=== PATIENT | female | born 2000 | race Caucasian/White ===

== ENCOUNTER 2020-03-02 13:00 | Emergency (ER) | payer OTHER, SELFPAY ==
--- NOTE | 2020-03-02 13:31 | ER ---
Nurse's Notes [facility] Name: Shari Saleh Age: 19 yrs Sex: Female : 2000 Arrival Date: 03/02/2020 Time: 13:05 Bed 25 Private MD: Diagnosis: Strain of muscle, fascia and tendon at neck level Presentation: 03/02 13:10 Chief complaint: Patient states: Left sided neck pain for 10 days. Pain radiates into ll1 left arm at times with certain movements. Had JACOBSON one day. No N/V/D. No fever. Coronavirus screen: Client denies travel out of the [place] in the last 14 days. At this time, the client does not indicate any symptoms associated with coronavirus-19. Ebola Screen: Patient denies travel to an Ebola-affected area in the 21 days before illness onset. Acute neurological deficit: none identified. Initial Sepsis Screen: Does the patient meet any 2 criteria? No. Patient's initial sepsis screen is negative. Does the patient have a suspected source of infection? Yes: Other: neck pain. Risk Assessment: Do you want to hurt yourself or someone else? Patient reports no desire to harm self or others. Onset of symptoms was February 21, 2020. 13:10 Method Of Arrival: Ambulatory ll1 13:10 Acuity: KATIUSKA 4 ll1 Historical: - Allergies: 13:12 No Known Allergies; ll1 - PSHx: 13:12 None; ll1 - Immunization history:: Flu vaccine is not up to date. - Social history:: Smoking status: Patient denies any tobacco usage or history of. Screenin:16 Abuse screen: Denies threats or abuse. Denies injuries from another. Nutritional ss screening: No deficits noted. Tuberculosis screening: Never had TB. Fall Risk None identified. Assessment: 13:16 General: Appears in no apparent distress. comfortable, Behavior is calm, cooperative. ss Pain: Complains of pain in left mid cervical area, left trapezius and back Pain currently is 7 out of 10 on a pain scale. Quality of pain is described as tender, pinching, Pain began 1.5 weeks ago Is continuous. Pain: Aggravated by ROM. Neuro: Level of Consciousness is awake, alert, obeys commands, Oriented to person, place, time, situation. Cardiovascular: Capillary refill < 3 seconds is brisk in bilateral fingers. Respiratory: Airway is patent Respiratory effort is even, unlabored, Respiratory pattern is regular, symmetrical, Denies cough, shortness of breath pain with respiration, pain with cough. GI: Patient currently denies abdominal pain, diarrhea, nausea, vomiting. Derm: Skin is pink, warm \T\ dry. 13:20 Reassessment: call light given to patient. ss Vital Signs: 13:10 BP 120 / 81; Pulse 77; Resp 16; Temp 98.4; Pulse Ox 99% ; Weight 53.07 kg; Pain 8/10; ll1 ED Course: 13:05 Patient arrived in ED. mr 13:12 Triage completed. ll1 13:12 Arm band placed on Patient placed in an exam room, on a stretcher. ll1 13:15 Sole Hurt, RUY is Primary Nurse. ss 13:16 Patient has correct armband on for positive identification. Bed in low position. Call ss light in reach. 13:19 Steve Mark PA is PHCP. cp 13:19 Steve Louis MD is Attending Physician. cp 14:10 No provider procedures requiring assistance completed. Patient did not have IV access ss during this emergency room visit. Administered Medications: No medications were administered Outcome: 13:30 Discharge ordered by MD. cp 14:10 Discharged to home ambulatory, with family. ss 14:10 Condition: good 14:10 Discharge instructions given to patient, family, Instructed on discharge instructions, follow up and referral plans. medication usage, Demonstrated understanding of instructions, follow-up care, medications, Prescriptions given X 3. 14:10 Patient left the ED. ss Signatures: Lanette Oliva mr Sole Hurt, RN RN Steve Mark PA PA cp Lewis, Lynsay, RN RN ll1
--- NOTE | 2020-03-02 13:31 | EDPHYS ---
Physician Documentation [facility] Name: Shari Saleh Age: 19 yrs Sex: Female : 2000 Arrival Date: 03/02/2020 Time: 13:05 Bed 25 Private MD: ED Physician Steve Louis HPI: 03/02 13:24 This 19 yrs old Female presents to ER via Ambulatory with complaints of Neck cp Problem, Arm Pain. 13:24 The patient or guardian complains of pain, that is acute, tenderness. The symptoms are cp located on the left lateral neck. Onset: The symptoms/episode began/occurred 1.5 week(s) ago. Context: The neck injury/problem resulted from from unknown cause. Associated signs and symptoms: Pertinent positives: intermittent radiating pain down left arm, Pertinent negatives: fever, headache, numbness, tingling, weakness. Severity of symptoms: in the emergency department the symptoms are unchanged, despite home interventions. Historical: - Allergies: 13:12 No Known Allergies; ll1 - PSHx: 13:12 None; ll1 - Immunization history:: Flu vaccine is not up to date. - Social history:: Smoking status: Patient denies any tobacco usage or history of. ROS: 13:25 Eyes: Negative for injury, pain, redness, and discharge. cp 13:25 Constitutional: Negative for body aches, chills, fever, poor PO intake. 13:25 Neck: Positive for pain with movement, pain at rest, stiffness, of the left lateral neck, Negative for injury or acute deformity. 13:25 Cardiovascular: Negative for chest pain. 13:25 Respiratory: Negative for cough, shortness of breath, wheezing. 13:25 Abdomen/GI: Negative for abdominal pain, nausea, vomiting, and diarrhea. 13:25 Skin: Negative for rash. 13:25 Neuro: Negative for dizziness, headache, numbness, tingling, weakness. 13:25 All other systems are negative. Exam: 13:27 Head/Face: Normocephalic, atraumatic. cp 13:27 Constitutional: The patient appears in no acute distress, alert, awake, comfortable, non-toxic, well developed, well nourished. 13:27 Eyes: Periorbital structures: appear normal, Conjunctiva: normal, no exudate, no injection, Sclera: no appreciated abnormality, Lids and lashes: appear normal, bilaterally. 13:27 ENT: External ear(s): are unremarkable, Nose: is normal, Posterior pharynx: Airway: no evidence of obstruction, patent. 13:27 Neck: External neck: tenderness, that is mild, left lateral neck, C-spine: vertebral tenderness, is not appreciated, crepitus, is not appreciated, ROM/movement: pain, that is moderate, with rotation to the left, limited range of motion, is not appreciated, nuchal rigidity, is not appreciated. 13:27 Chest/axilla: Inspection: normal, Palpation: is normal, no crepitus, no tenderness. 13:27 Cardiovascular: Rate: normal. 13:27 Respiratory: the patient does not display signs of respiratory distress, Respirations: normal, no use of accessory muscles, labored breathing, is not present. 13:27 Skin: no rash present. 13:27 Neuro: Orientation: to person, place \T\ time. Mentation: is normal, Motor: moves all fours, strength is normal, Sensation: is normal. Vital Signs: 13:10 BP 120 / 81; Pulse 77; Resp 16; Temp 98.4; Pulse Ox 99% ; Weight 53.07 kg; Pain 8/10; ll1 MDM: 13:19 Patient medically screened. cp 13:29 Data reviewed: vital signs, nurses notes, and as a result, I will discharge patient. cp Administered Medications: No medications were administered Disposition: 16:43 Co-signature as Attending Physician, Steve Louis MD. rn Disposition: 03/02/20 13:30 Discharged to Home. Impression: Strain of muscle, fascia and tendon at neck level. - Condition is Stable. - Discharge Instructions: Muscle Strain, Neck Exercises. - Prescriptions for Lidoderm 5 % Topical adhesive patch,medicated - apply 1 patch by TRANSDERMAL route once daily; 1 box. Ibuprofen 600 mg Oral Tablet - take 1 tablet by ORAL route every 6 hours As needed take with food; 30 tablet. Cyclobenzaprine 10 mg Oral Tablet - take 1 tablet by ORAL route every 8 hours As needed; 15 tablet. - Work release form, Family Work Release, Medication Reconciliation Form, Thank You Letter, Antibiotic Education, Prescription Opioid Use form. - Follow up: Private Physician; When: 2 - 3 days; Reason: Recheck today's complaints. - Problem is new. - Symptoms are unchanged. Signatures: Steve Louis MD MD rn Smirch, Shelby, RN RN ss Page, Corey, PA PA cp Lewis, Lynsay, RN RN ll1 Corrections: (The following items were deleted from the chart) 14:10 13:30 03/02/2020 13:30 Discharged to Home. Impression: Strain of muscle, fascia and ss tendon at neck level. Condition is Stable. Forms are Medication Reconciliation Form, Thank You Letter, Antibiotic Education, Prescription Opioid Use. Follow up: Private Physician; When: 2 - 3 days; Reason: Recheck today's complaints. Problem is new. Symptoms are unchanged. cp
[2020-03-02 14:26] VITALS: BP 120/81; TEMP 98.4; O2SAT 99
== END 2020-03-02 14:10 | disposition home or self-care (01) ==
LOC: ER 13:00
DX: S16.1XXA Strain of muscle, fascia and tendon at neck level, initial encounter (principal)
CPT/HCPCS: 99282

== ENCOUNTER 2021-03-11 02:41 | Emergency (ER) | payer SELFPAY ==
[2021-03-11 03:30] LABS: Urine Blood Trace-lysed (Negative); Urine Glucose Negative (Negative); Urine Protein Negative (Negative)
[2021-03-11 03:46] LABS: Urine Bacteria 20-50 /HPF (<20); Urine Mucus 1+ /HPF (NONE SEEN); Urine RBC <5 /HPF (NONE SEEN)
--- NOTE | 2021-03-11 04:17 | EDPHYS ---
Physician Documentation [facility] Name: Shari Saleh Age: 20 yrs Sex: Female : 2000 Arrival Date: 03/11/2021 Time: 02:45 Bed 4 Private MD: ED Physician Steve Louis HPI: 03/11 03:44 This 20 yrs old Female presents to ER via Ambulatory with complaints of rn Shivering. 03:44 Patient reports shivering and cannot stop shaking. Reports had brisket earlier and got rn home later and threw up a single time. [place] better after throwing up but cannot stop shaking. Also got in an argument with girlfriend tonight and not sure if more related to that. Denies any fever. Denies any abdominal pain/cough/shortness of breath. Denies any urinary symptoms.. Onset: The symptoms/episode began/occurred just prior to arrival. Severity of symptoms: At their worst the symptoms were moderate in the emergency department the symptoms have improved. The patient has not experienced similar symptoms in the past. The patient has not recently seen a physician. Historical: - Allergies: 02:56 No Known Allergies; sj1 - Home Meds: 02:56 None [Active]; sj1 - PMHx: 02:56 None; sj1 - Immunization history:: Adult Immunizations up to date, Client reports having NOT received the Covid vaccine. - Social history:: Smoking status: Reported history of juuling and/or vaping. Patient uses alcohol, occasionally. Patient/guardian denies using street drugs. - Family history:: not pertinent. - Hospitalizations: : No recent hospitalization is reported. ROS: 03:44 Constitutional: Negative for fever, and weight loss, Eyes: Negative for injury, pain, rn redness, and discharge, ENT: Negative for injury, pain, and discharge, Neck: Negative for injury, pain, and swelling, Cardiovascular: Negative for chest pain, palpitations, and edema, Respiratory: Negative for shortness of breath, cough, wheezing, and pleuritic chest pain, Abdomen/GI: Negative for abdominal pain, nausea, vomiting, diarrhea, and constipation, Back: Negative for injury and pain, : Negative for injury, bleeding, discharge, and swelling, MS/Extremity: Negative for injury and deformity, Skin: Negative for injury, rash, and discoloration, Neuro: Negative for headache, weakness, numbness, tingling, and seizure. Exam: 03:44 Constitutional: This is a well developed, well nourished patient who is awake, alert, rn and in no acute distress. Ambulatory to room without difficulty or assistance Head/Face: Normocephalic, atraumatic. Eyes: Periorbital areas with no swelling, redness, or edema. Neck: Trachea midline, no thyromegaly or masses palpated, and no cervical lymphadenopathy. Supple, full range of motion without nuchal rigidity, or vertebral point tenderness. No Meningismus. Cardiovascular: Regular rate and rhythm. No pulse deficits. Respiratory: No increased work of breathing, no retractions or nasal flaring. Abdomen/GI: Soft, non-tender Back: No spinal tenderness. No costovertebral tenderness. Full range of motion. Skin: Warm, dry with normal turgor. Normal color with no rashes, no lesions, and no evidence of cellulitis. MS/ Extremity: Pulses equal, no cyanosis. Neurovascular intact. Full, normal range of motion. Equal circumference. Neuro: Awake and alert, GCS 15, oriented to person, place, time, and situation. Cranial nerves II-XII grossly intact. Motor strength 5/5 in all extremities. Sensory grossly intact. Cerebellar exam normal. Normal gait. Vital Signs: 02:54 BP 109 / 70; Pulse 96; Resp 18 S; Temp 97.5(O); Pulse Ox 99% on R/A; Weight 54.43 kg; sj1 Height 5 ft. 1 in. (154.94 cm); Pain 0/10; 04:33 BP 94 / 55; Pulse 84; Resp 17 S; Temp 98.9(O); Pulse Ox 99% on R/A; Pain 0/10; sj1 02:54 Body Mass Index 22.67 (54.43 kg, 154.94 cm) sj1 MDM: 02:46 Patient medically screened. rn 04:15 Differential Diagnosis Urinary tract infection, acute stress reaction, anxiety, food rn poisoning. Data reviewed: vital signs, nurses notes, lab test result(s), urinalysis, and as a result, I will discharge patient. Counseling: I had a detailed discussion with the patient and/or guardian regarding: the historical points, exam findings, and any diagnostic results supporting the discharge/admit diagnosis, lab results, the need for outpatient follow up, to return to the emergency department if symptoms worsen or persist or if there are any questions or concerns that arise at home. Response to treatment: the patient's symptoms have markedly improved after treatment, the patient's symptoms have resolved after treatment, the patient's condition has returned to base line, the patient is now symptom free, and as a result, I will discharge patient. Special discussion: I discussed with the patient/guardian in detail that at this point there is no indication for admission to the hospital. It is understood, however, that if the symptoms persist or worsen the patient needs to return immediately for re-evaluation. ED course: Patient sleeping comfortably, when woken up states she feels great no more shaking or shivering. Afebrile. Urine does not appear to be a clean-catch specimen and without any urinary symptoms will not treat with antibiotics. Return precautions given and understood.. 03/11 03:04 Order name: Urine Microscopic Only rn 03/11 03:05 Order name: Urine Microscopic Only; Complete Time: 04:12 [facility] 03/11 03:04 Order name: Urine Dipstick-Ancillary (obtain specimen); Complete Time: 03:40 rn 03/11 03:29 Order name: Urine Dipstick-Ancillary; Complete Time: 03:43 [facility] 03/11 03:47 Order name: Urine Culture [facility] 03/11 03:49 Order name: Urine --Ancillary (enter results); Complete Time: 04:12 [facility]3 03/11 03:04 Order name: Urine Test (obtain specimen); Complete Time: 03:40 rn Administered Medications: No medications were administered Disposition Summary: 03/11/21 04:16 Discharge Ordered Location: Home rn Problem: new rn Symptoms: are resolved rn Condition: Stable rn Diagnosis - Chills (without fever) rn Followup: rn - With: Private Physician - When: As needed - Reason: Recheck today's complaints, Re-evaluation by your physician Discharge Instructions: - Discharge Summary Sheet sj1 Forms: - Medication Reconciliation Form rn - Thank You Letter rn - Antibiotic rn employee health - Prescription Opioid Use rn - Work release form sj1 Signatures: Dispatcher [employer] EDSteve Newman MD MD rn Johnson, Sade, RN RN sj1
--- NOTE | 2021-03-11 04:17 | ER ---
Nurse's Notes [facility] Name: Shari Saleh Age: 20 yrs Sex: Female : 2000 Arrival Date: 03/11/2021 Time: 02:45 Bed 4 Private MD: Diagnosis: Chills (without fever) Presentation: 03/11 02:54 Chief complaint: Patient states: ate brisket around 2300, 3 episodes of vomiting, sj1 denies pain. C/o chills and shivering. Coronavirus screen: Vaccine status: Patient reports being unvaccinated. Ebola Screen: Patient negative for fever greater than or equal to 101.5 degrees Fahrenheit, and additional compatible Ebola Virus Disease symptoms Patient denies exposure to infectious person. Patient denies travel to an Ebola-affected area in the 21 days before illness onset. Initial Sepsis Screen: Does the patient meet any 2 criteria? No. Patient's initial sepsis screen is negative. Does the patient have a suspected source of infection? No. Patient's initial sepsis screen is negative. Risk Assessment: Do you want to hurt yourself or someone else? Patient reports no desire to harm self or others. Onset of symptoms was March 10, 2021. 02:54 Method Of Arrival: Ambulatory sj1 02:54 Acuity: KATIUSKA 4 sj1 Triage Assessment: 02:56 General: Appears in no apparent distress. Behavior is cooperative, appropriate for age. sj1 General: reports ongoing shivering. Pain: Denies pain. EENT: No deficits noted. Neuro: No deficits noted. Cardiovascular: No deficits noted. Respiratory: No deficits noted. GI: Reports vomiting. : No deficits noted. Derm:. Derm: No signs and/or symptoms reported regarding the dermatologic system. Musculoskeletal: No deficits noted. Historical: - Allergies: 02:56 No Known Allergies; sj1 - Home Meds: 02:56 None [Active]; sj1 - PMHx: 02:56 None; sj1 - Immunization history:: Adult Immunizations up to date, Client reports having NOT received the Covid vaccine. - Social history:: Smoking status: Reported history of juuling and/or vaping. Patient uses alcohol, occasionally. Patient/guardian denies using street drugs. - Family history:: not pertinent. - Hospitalizations: : No recent hospitalization is reported. Screenin:59 Abuse screen: Denies threats or abuse. Denies injuries from another. Nutritional sj1 screening: No deficits noted. Tuberculosis screening: No symptoms or risk factors identified. Fall Risk None identified. Assessment: 03:12 Neuro: No deficits noted. Cardiovascular: No deficits noted. Respiratory: No deficits bc5 noted. GI: No deficits noted. : No deficits noted. EENT: No deficits noted. Derm: No deficits noted. Musculoskeletal: No deficits noted. Vital Signs: 02:54 BP 109 / 70; Pulse 96; Resp 18 S; Temp 97.5(O); Pulse Ox 99% on R/A; Weight 54.43 kg; sj1 Height 5 ft. 1 in. (154.94 cm); Pain 0/10; 04:33 BP 94 / 55; Pulse 84; Resp 17 S; Temp 98.9(O); Pulse Ox 99% on R/A; Pain 0/10; sj1 02:54 Body Mass Index 22.67 (54.43 kg, 154.94 cm) 1 ED Course: 02:45 Patient arrived in ED. 02:46 Steve Louis MD is Attending Physician. rn 02:56 Triage completed. sj1 02:56 Arm band placed on. sj1 02:59 Patient has correct armband on for positive identification. sj1 03:11 Mary Dinh, RN is Primary Nurse. bc5 03:11 No provider procedures requiring assistance completed. bc5 03:40 Urine Microscopic Only Sent. df1 04:32 Patient did not have IV access during this emergency room visit. sj1 Administered Medications: No medications were administered Outcome: 04:16 Discharge ordered by . rn 04:30 Discharged to home ambulatory. sj1 04:30 Condition: stable 04:30 Discharge instructions given to patient, Instructed on discharge instructions, follow up and referral plans. Demonstrated understanding of instructions, follow-up care. 04:33 Patient left the ED. sj1 Signatures: Steve Louis MD MD rn Marsh, Wendy Mary Dinh, RN RN Hermila Cooper df1 Renetta Melissa RN RN [facility]
[2021-03-11 05:05] VITALS: O2SAT 99
[2021-03-11 05:07] VITALS: BP 94/55; TEMP 98.9
== END 2021-03-11 04:33 | disposition home or self-care (01) ==
LOC: ER 02:41
DX: R68.83 Chills (without fever) (principal)
CPT/HCPCS: 81003; 81015; 81025; 87086; 87088; 99283